=== PATIENT | female | born 1960 | race Two or more races ===

== ENCOUNTER 2018-04-24 10:25 | Emergency (ER) | payer OTHER ==
[~2018-04-24] VITALS: Ht 162.6 cm; Wt 113.4 kg
[~2018-04-24 10:25] MED LIST: ASA81 MG; AVAPRO150 MG; DIOVAN160 M1; HYDROCHLOROTH12.5 MG; KETO10TA2 PO; N; OSEL75CA PO; PERSANTINE25 MG; PREVACID30 MG; XOPENEX0.63 MG/3 IH
[2018-04-24] MEDS ORDERED: AVALIDE 300-121 EACH (10:39)
[2018-04-24] MEDS ORDERED: PROTONIX40 M1 (10:39)
[2018-04-24] MEDS ORDERED: CRESTOR20 MG (10:39)
== END 2018-04-24 14:51 | disposition home or self-care (01) ==
LOC: ER 10:25
DX: M17.11 Unilateral primary osteoarthritis, right knee (principal); M25.561 Pain in right knee

== ENCOUNTER 2019-01-06 12:37 | Emergency (ER) | payer OTHER ==
[~2019-01-06] VITALS: Ht 162.6 cm; Wt 106.6 kg
[~2019-01-06 12:37] MED LIST changes: +AVALIDE 300-121 EACH; +CRESTOR20 MG; +PROTONIX40 M1
[2019-01-06] MEDS ORDERED: PEPCID40 MG (13:52)
== END 2019-01-06 19:28 | disposition home or self-care (01) ==
LOC: ER 12:37
DX: J45.998 Other asthma (principal)